=== PATIENT | female | born 1985 ===

== ENCOUNTER → 2016-12-23 | Outpatient (CLI) | payer OTHER ==
--- NOTE | 2016-12-23 12:27 | DIAGNOSTIC IMAGING REPORT ---
RIGHT KNEE MRI HISTORY: RT KNEE PAIN COMPARISON STUDY: Right knee 12/16/2016. TECHNIQUE: Multiplanar multisequence MRI of the right knee was performed according to standard department protocol without the use of contrast. FINDINGS: Suboptimal evaluation of the right knee due to the patient's body habitus. Menisci: The medial and lateral menisci are intact. Ligaments: The anterior and posterior cruciate ligaments are intact. The medial and lateral collateral ligaments are normal in appearance. Extensor mechanism: The quadriceps tendon is intact. Focal area of increased signal within the proximal patellar ligament suggestive of a mild patellar tendinopathy. Articular cartilage and bone: No fracture or dislocation. Normal marrow signal intensity seen throughout the visualized osseous structures. Cartilage spaces are maintained for age. There is mild lateral patellar subluxation of approximately 5 mm. Joint effusion: None. Soft tissues: Intact. IMPRESSION: 1. Suggestion of mild patellar tendinopathy. However, this could be chronic. There is no surrounding edema at this time to suggest an acute process. 2. Mild lateral patellar subluxation. Electronically signed by: Willie Leo M.D. 12/23/2016 12:26 PM Dictated Date/Time: 12/23/2016 12:22 PM
== END | disposition home or self-care (01) ==
LOC: C.MRIBC 09:37
PROVIDERS: ATTEND Family Medicine
DX: M25.561 Pain in right knee (principal)